=== PATIENT | male | born 1930 | race Caucasian/White ===

== ENCOUNTER 2017-01-30 22:47 | Emergency (ER) | payer OTHER, MEDICARE ==
[~2017-01-30] VITALS: Ht 177.8 cm; Wt 65.8 kg
[~2017-01-30 22:47] MED LIST: AMIODARONE HCL100 M1 PO; AMIODARONE HCL200 M1 PO; ASPIRIN EC81 M1 PO; ATORVASTATIN CA20 M1 PO; CENTRUM SILVER1 EAC3 PO; CIPRO500 M1 PO; COLACE100 M1 PO; DONEPEZIL HCL10 M1 PO; ELIQUIS5 M1 PO; FLUOCINOLONE AC15 G2 TOP; FUROSEMIDE40 M1 PO; LISINOPRIL10 M1 PO; LORAZEPAM2 M1 PO; MOVE FREE JOIN1 EACH PO; NAMENDA10 M2 PO; OCUVITE SOFTGE1 EACH PO; SERTRALINE HCL50 MG PO; SULFAMETHOXAZO1 EAC1 PO
--- NOTE | 2017-01-30 22:50 | ED AMS/SEIZURE/WEAK/DIZZY ---
History of Present Illness General Chief Complaint: General Adult Stated Complaint: " BIBA PER EMS AMS " Source: patient, family, old records, EMS Exam Limitations: dementia, AGITATION Vital Signs & Intake/Output Vital Signs & Intake/Output Vital Signs Date Time Temp Pulse Resp B/P B/P Pulse O2 O2 Flow FiO2 Mean Ox Delivery Rate 02/01 1159 96.7 62 18 120/66 96 Room Air 02/01 0928 98.6 76 18 115/59 98 Room Air Allergies Coded Allergies: NO KNOWN ALLERGIES (05/04/16) Triage Nurses Notes Reviewed? yes Onset: Abrupt Duration: day(s): (2), constant Timing: recent history Injury Environment: home Severity: severe Severity Numbers: 10 No Modifying Factors: none Associated Symptoms: denies HPI: 86 Year old male with history of dementia, CAD s/p [place] and CABG (1986), ischemic cardiomyopathy s/p AICD placement and Afib on Eliquis Presents on police pain for after the patient has walked out of his house twice and has been found laying in the [place] stating to police that "need nail alone or I will hhur you" the patient has be restrained and carried out of the [place] according to the patient's daughter who is the power of claims attorney he had a similar episode a few years ago that did not require hospitalization however they attributed to he's been compliant with all his medications. No recent head trauma no urinary complaints on arrival patient is agitated that he is here he offers no complaints. (DEWEY OLIVER) Reconcile Medications Amiodarone HCl 200 MG TABLET 1 TAB PO Q48 HEART (Reported) Amiodarone HCl 100 MG TABLET 1 TAB PO Q48 HEART (Reported) Apixaban (Eliquis) 5 MG TABLET 1 TAB PO BID BLOOD THINNER (Reported) Aspirin (Ecotrin*) 81 MG TABLET.DR 1 TAB PO DAILY HEART/BLOOD (Reported) Atorvastatin Calcium 20 MG TABLET 0.5 TAB PO DAILY CHOLESTEROL (Reported) Donepezil HCl 10 MG TABLET 1 TAB PO DAILY MEMORY (Reported) Furosemide 40 MG TABLET 1 TAB PO QAM DIURETIC (Reported) Lisinopril 10 MG TABLET 1 TAB PO BID BP (Reported) Lorazepam 2 MG TABLET 5 TAB PO QPM SLEEP (Reported) Memantine HCl (Namenda) 10 MG TABLET 1 TAB PO BID MEMORY (Reported) Sertraline HCl 50 MG TABLET 1 TAB PO DAILY MENTAL HEALTH (Reported) (ASHOK CASTAÑEDA,ALTAGRACIA Casillas) Past History Travel History Traveled to [place] past 21 day No Medical History Any Pertinent Medical History? 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 No (DEWEY OLIVER) Review of Systems Review of Systems Constitutional: Reports: see HPI. All Other Systems: Reviewed and Negative Comments Review of systems: See HPI, All other systems negative. Constitutional, no chills no fever, no malaise HEENT: No visual changes no sore throat no congestion, Cardiovascular: No chest pain , no palpitation , Skin: no rashes, no change in skin Respiratory: No dyspnea no cough no sputum GI: No nausea no vomiting, : No dysuria Muscle skeletal: No joint pain, no joint swelling, no back pain, no neck pain, Neurologic: No numbness confusion, no headache Psych: No stress Heme/endocrine: No bruising Immunology: No lymphadenopathy (DEWEY OLIVER) Physical Exam Physical Exam General Appearance: well developed/nourished, awake Comments: Well-developed well-nourished person in no acute distress HEENT: Normal EENT exam; PERRL, EOMI, no nystagmus. HEAD is atraumatic. moist mucous membranes. Neck: Supple, normal range of motion Back: Nontender, no CVA tenderness. Full range of motion Cardiovascular: Regular rate and rhythms no murmurs rubs Respiratory: No respiratory distress. Patient speaking in full complete sentences. Breath sounds clear to auscultation bilaterally: NO W/R/R Abdomen: Soft, nontender nondistended, no appreciable organomegaly. Extremity: Ecchymosis superficial abrasions to bilateral forearms No edema, full range of motion of extremities, normal and equal pulses bilaterally, 5 out of 5 strength noted to bilateral upper and lower extremities Neuro: Alert oriented x1, motor sensory normal, cranial nerves II through XII grossly intact. There were no obvious focal neurologic abnormalities. Skin: No appreciable rash on exposed skin, skin is warm and dry. Psych: Mood and affect is normal, memory and judgment is normal. Core Measures ACS in differential dx? No CVA/TIA Diagnosis: No Severe Sepsis Present: No Septic Shock Present: No (YOSI PATEL,DEWEY) Progress Differential Diagnosis: alcohol intoxication, anemia, CVA/stroke, electrolyte imbalance, intracranial Hem., intracranial mass/tumor, ELECTROLYTE ABNORAMLITY, DEHYDRATOIN, NORMAL PRESSURE HYDROCEPHALUS, DEMENTIA, UTI, PSYCHOSIS Plan of Care: Orders Procedure Date/time Status Continuous Observation Monitor 02/01 0730 Active CASE MANAGEMENT CONSULT 02/01 0710 Active Continuous Observation Monitor 01/31 1925 Active Continuous Observation Monitor 01/31 1529 Active Continuous Observation Monitor 01/31 1525 Active Labs ordered old records reviewed patient is directable and cooperative at this time case discussed with and signed out to Dr. Culver pending crisis in case management evaluation at 1 AM (YOSI PATEL,DEWEY) 02/01/2017 7:25:55 AM Patient signed out to me by Dr. Hogue. Pending case management evaluation. Pending crisis follow up. 8 AM CASE MANAGEMENT PAGED. 2:51 PM PATIENT TO BE TRANSFERRED TO INPATIENT [facility] BED (DANILO CASTAÑEDA,[facility]) Diagnostic Imaging: Viewed by Me: CT Scan. Discussed w/RAD: CT Scan. Radiology Impression: PATIENT: NOHEMY CNAELA PRESENT AGE: 86 PATIENT ACCOUNT NO: [id number] : [birth year] LOCATION: [facility] ORDERING PHYSICIAN: DEWEY PATEL SERVICE DATE: 01/30/176441 EXAM TYPE: CAT - CT HEAD WO IV CONTRAST EXAMINATION: CT HEAD WITHOUT CONTRAST CLINICAL INFORMATION: Altered mental status COMPARISON: 03/05/2016 TECHNIQUE: Contiguous axial imaging was performed from the skull base to vertex without intravenous administration of contrast. DLP: 606.55 mGy-cm FINDINGS: There is no evidence of acute intracranial hemorrhage or territorial infarction. No abnormal mass effect or midline shift is seen. Zuniga to white matter differentiation is well preserved. No extra-axial fluid collections are identified. The ventricles are normal in size. There is mild to moderate periventricular white matter hypoattenuation consistent with chronic small vessel ischemic disease. The osseous structures and soft tissues are normal. The mastoid air cells and visualized portions of the paranasal sinuses are well aerated. IMPRESSION: No acute intracranial pathology. DICTATED BY: CHACHA VILLATORO MD DATE/TIME DICTATED:01/30/172333 DIAMOND DIE MAKER:ANIRUDH DATE/TIME TRANSCRIBED:01/30/172333 CONFIDENTIAL, DO NOT COPY WITHOUT APPROPRIATE AUTHORIZATION. <Electronically signed in Other Vendor System> SIGNED BY: CHACHA VILLATORO MD 01/30/17 2341 Initial ED EKG: none Hand-Off Endorsed To: JOSEPH CULVER MD Endorsed Time: 010 Pending: consult (CRISIS, CASE MANAGEMENT) (YOSI PATEL,DEWEY) Comments: 01/31/2017 3:34:26 AM patient signed out to me by PA shift change agent. 01/31/2017 8:01:49 AM patient's case has been signed out to Dr. Palacios pending crisis evaluation. Uneventful emergency department stay overnight. (JOSEPH CULVER MD) Hand-Off Endorsed To: ANGELI HOGUE MD Endorsed Time: 190 Pending: consult (BED SEARCH) Comments: Patient has been seen and evaluated by mule operator. Patient is going to require admission for Yaa psych. A bed search is underway. A PEC has been signed. (ASHOK CASTAÑEDA,ALTAGRACIA Casillas) Departure Departure Condition: Stable Clinical Impression Primary Impression: Dementia Referrals: BIRGIT CASTAÑEDA,JUD Olivia (PCP/Family) Departure Forms: Customer Survey General Discharge Information (DEWEY OLIVER) PA/LAY OUT MAKER Co-Sign Statement Statement: ED Attending supervision documentation- [] I saw and evaluated the patient. I have also reviewed all the pertinent lab results and diagnostic results. I agree with the findings and the plan of care as documented in the PA's/LAY OUT MAKER's documentation. [x] I have reviewed the ED Record and agree with the PA's/LAY OUT MAKER's documentation. [] Additions or exceptions (if any) to the PAs/LAY OUT MAKER's note and plan are summarized below: [] (ANGELI HOGUE MD) Departure Disposition: OTHER GENERAL HOSPITAL (ACUTE) (THAO CARRASCO MD) [] (ANGELI HOGUE MD) Departure Disposition: OTHER GENERAL HOSPITAL (ACUTE) (DANILO CASTAÑEDA,THAO) Vendor System> SIGNED BY: CHACHA VILLATORO MD 01/30/17 2341 Initial ED EKG: none Hand-Off Endorsed To: JOSEPH CULVER MD Endorsed Time: 0100 Pending: consult (CRISIS, CASE MANAGEMENT) (DEWEY OLIVER) Comments: 01/31/2017 3:34:26 AM patient signed out to me by PA shift change agent. 01/31/2017 8:01:49 AM patient's case has been signed out to Dr. Palacios pending crisis evaluation. Uneventful emergency department stay overnight. (JOSEPH CULVER MD) Hand-Off Endorsed To: ANGELI HOGUE MD Endorsed Time: 1900 Pending: consult (BED SEARCH) Comments: Patient has been seen and evaluated by mule operator. Patient is going to require admission for Yaa psych. A bed search is underway. A PEC has been signed. (ASHOK CASTAÑEDA,ALTAGRACIA Casillas) Departure Departure Disposition: STILL A PATIENT Condition: Stable Clinical Impression Primary Impression: Dementia Referrals: JUD GENAO MD (PCP/Family) Departure Forms: Customer Survey General Discharge Information (DEWEY OLIVER) PA/LAY OUT MAKER Co-Sign Statement Statement: ED Attending supervision documentation- [] I saw and evaluated the patient. I have also reviewed all the pertinent lab results and diagnostic results. I agree with the findings and the plan of care as documented in the PA's/LAY OUT MAKER's documentation. [x] I have reviewed the ED Record and agree with the PA's/LAY OUT MAKER's documentation. [] Additions or exceptions (if any) to the PAs/LAY OUT MAKER's note and plan are summarized below: [] (EVANS CASTAÑEDA,ANGELI Reese)
--- NOTE | 2017-01-30 23:41 | CT SCAN REPORT ---
EXAMINATION: CT HEAD WITHOUT CONTRAST CLINICAL INFORMATION: Altered mental status COMPARISON: 03/05/2016 TECHNIQUE: Contiguous axial imaging was performed from the skull base to vertex without intravenous administration of contrast. DLP: 606.55 mGy-cm FINDINGS: There is no evidence of acute intracranial hemorrhage or territorial infarction. No abnormal mass effect or midline shift is seen. Zuniga to white matter differentiation is well preserved. No extra-axial fluid collections are identified. The ventricles are normal in size. There is mild to moderate periventricular white matter hypoattenuation consistent with chronic small vessel ischemic disease. The osseous structures and soft tissues are normal. The mastoid air cells and visualized portions of the paranasal sinuses are well aerated. IMPRESSION: No acute intracranial pathology.
[2017-01-30 23:53] LABS: ABSOLUTE BASOPHIL COUNT 0 /CUMM (0.0-0.2); ABSOLUTE EOSINOPHIL COUNT 0 /CUMM (0.0-0.7); ABSOLUTE GRANULOCYTE CT 7.8 /CUMM (1.4-6.5); ABSOLUTE MONOCYTE COUNT 0.7 /CUMM (0.10-0.60); BASOPHIL % 0.1 % (0.0-2.0); EOSINOPHIL % 0.3 % (0-5); GRANULOCYTE % 82.2 % (42.2-75.2); HEMATOCRIT 34.6 % (42-52); MEAN CORPUSCULAR HGB 26.9 PG (27.0-31.0); MEAN CORPUSCULAR HGB CONC 32.9 G/DL (33.0-37.0); MEAN CORPUSCULAR VOLUME 81.7 FL (80.0-94.0); PLATELET COUNT 151 /CUMM (130-400); RBC DISTRIBUTION WIDTH 14.8 % (11.5-14.5); RED BLOOD CELL CT 4.23 /CUMM (4.70-6.10); WHITE BLOOD CELL COUNT 9.5 /CUMM (4.8-10.8)
--- NOTE | 2017-01-31 09:50 | ED PSYCH CRISIS CONSULTATION ---
See Addendum Crisis Consult Basic Assessment Date of Consult: 01/31/17 Responsible Person/Accompanied By: , daughter/Power of Acid Dipper Insurance Authorization: Insurance #1: Insurance name: MEDICARE A Phone number: Policy number: [id number] Group number: Authorization number: ED Provider: Patient's ED Provider: DEWEY OLIVER Primary Care Physician: Patient's PCP: JUD GENAO MD PCP's Current Psychiatrist: n/a Chief Complaint: General Adult Patient's Quote: "I don't know why I was brought here." Present Illness: The pt is an 86yo male BIBA on a PEER after becoming disoriented during his daily walk and found by family and neighbors in the [facility]. During this assessment this typewriters functional tester met with the pt, met with his and reviewed the ED documentation and PEER. The pt was reportedly diagnosed approximately 2 years ago with dementia. The pt walks 5-6 miles almost daily with no incidents until 01/29/17. On 01/29/17 the pt became disoriented during his walk and reportedly tried to take a shortcut. The pt reportedly hit his head due to a fall while in the [facility]. The family called the police who found the pt after he made his way to a road. The pt refused the hospital, knew his name and address, reportedly appeared oriented and was returned home by the police. On 01/30/17 the pt again ended up in the [facility] while walking alone. The pt was again found by family but quickly walked away from them in the [place]. The pt stated he wanted to sleep by the lime in the [facility]. During this time the pt did not recognize his daughter in law. The pt was uncoopertaive with the police and EMS. The pt was restrained in order to be transported by ambulance to the ED. During this assessment the pt presented alert and cooperative. The pt stated he does not know why he is in the hospital. The pt was not sure of the current month stating December or September. The pt stated he knows this hospital well but could not remember the name of the hospital. The pt is requesting discharge home. The pt denies SI, HI, AH or VH. The pts confirmed the pt does not have any history of SI, HI,AH or VH. The pt denies any problems with sleep and appetite. The pt does not have any previous psychiatric hospitalizations. The pts reports excluding the episode yesterday the pt has a pleasant and caring demeanor. The pts stated the 2 incidents of walking in the [place] and being lost are a significant change for the pt. The pt is in consistent treatment with his PCP Dr. Jud Genao. The pts reports the pt last saw his PCP approximately 10 days ago. The pts reports he takes his medications as prescribed. The pt and his have been for 64 years and have 3 adult children who are supportive and live near them. The pt drives only with his in the car to help provide directions. 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 Pts denies a history of dementia in the pts family. Pts presentation discussed with Dr. Jennifer Hanley. Plan is for a [facility]- Psychiatric hospitalization on a PEC due to grave disability. Crisis spoke with the pts Power of Acid Dipper and daughter Lilli Neumann ) who stated she is concerned about what appears to be a sudden change in functioning. Ms. Bazan stated she is in agreement with the plan for a PEC and hospitalization. Patient's Address: [address] [place] [address] Other Phone Number: Who Do You Live With? Spouse Family/Informants Interviewed: , daughter/POA Allergies - Coded Allergies: NO KNOWN ALLERGIES (05/04/16) Current Medications - Scheduled Medications Amiodarone HCl 200 MG TABLET 1 TAB PO Q48 HEART #60 (Reported) Entered as Reported by RAJIV OCHOA on 04/08/16 1650 Amiodarone HCl 100 MG TABLET 1 TAB PO Q48 HEART (Reported) Entered as Reported by RAJIV OCHOA on 04/08/16 1651 Apixaban (Eliquis) 5 MG TABLET 1 TAB PO BID BLOOD THINNER #60 (Reported) Entered as Reported by RAJIV OCHOA on 04/08/16 1649 Aspirin (Ecotrin*) 81 MG TABLET. 1 TAB PO DAILY HEART/BLOOD (Reported) Entered as Reported by RAJIV OCHOA on 04/08/16 1652 Atorvastatin Calcium 20 MG TABLET 0.5 TAB PO DAILY CHOLESTEROL #45 (Reported) Entered as Reported by RAJIV OCHOA on 04/08/16 1651 Donepezil HCl 10 MG TABLET 1 TAB PO DAILY MEMORY #90 (Reported) Entered as Reported by RAJIV OCHOA on 04/08/16 1651 Furosemide 40 MG TABLET 1 TAB PO QAM DIURETIC #90 (Reported) Entered as Reported by RAJIV OCHOA on 04/08/16 1649 Lisinopril 10 MG TABLET 1 TAB PO BID BP #180 (Reported) Entered as Reported by RAJIV OCHOA on 04/08/16 1649 Lorazepam 2 MG TABLET 5 TAB PO QPM SLEEP #30 (Reported) Entered as Reported by RAJIV OCHOA on 04/08/16 1652 Memantine HCl (Namenda) 10 MG TABLET 1 TAB PO BID MEMORY #60 (Reported) Entered as Reported by RAJIV OCHOA on 04/08/16 1654 Sertraline HCl 50 MG TABLET 1 TAB PO DAILY MENTAL HEALTH #30 (Reported) Entered as Reported by RAJIV OCHOA on 04/08/16 1648 Laboratory Results: Laboratory Tests 01/30/17 2354: Urine Opiates Screen < 100.00, Methadone Screen 57, Barbiturate Screen < 60, Ur Phencyclidine Scrn < 6.00, Amphetamines Screen < 100, U Benzodiazepines Scrn 121 , Urine Cocaine Screen < 50, Urine Cannabis Screen < 5.00, Urinalysis LIGHT H, Urine Color YEL, Urine Clarity HAZY H, Urine pH 6.0, Ur Specific [place] 1.015, Urine Protein TRACE H, Urine Ketones NEG, Urine Nitrite NEG, Urine Bilirubin NEG, Urine Urobilinogen 0.2, Ur Leukocyte Esterase NEG, Ur Microscopic SEDIMENT EXAMINED, Urine RBC 1-3, Urine WBC 1-3 H, Ur Epithelial Cells FEW, Urine Bacteria FEW H, Urine Mucus MOD H, Urine Hemoglobin NEG, Urine Glucose NEG 01/30/17 2344: Anion Gap 13, Estimated GFR 57 L, BUN/Creatinine Ratio 24.2, Glucose 129 H, Calcium 9.8, Total Bilirubin 0.7, AST 41, ALT 43, Alkaline Phosphatase 87, Total Protein 7.3, Albumin 4.4, Globulin 2.9, Albumin/Globulin Ratio 1.5, Serum Alcohol < 10.0 01/30/17 2334: CBC w Diff NO MAN DIFF REQ, RBC 4.23 L, MCV 81.7, MCH 26.9 L, RDW 14.8 H, MPV 8.0, Gran % 82.2 H, Lymphocytes % 10.5 L, Monocytes % 6.9, Eosinophils % 0.3, Basophils % 0.1, Absolute Granulocytes 7.8 H, Absolute Lymphocytes 1.0 L, Absolute Monocytes 0.7 H, Absolute Eosinophils 0, Absolute Basophils 0, PUBS MCHC 32.9 L (JOSE GUERIN,BAM SCHRADER) Addendum Addendum Crisis re-eval patient. Patient continues to present calm and cooperative. Patient was able to identify that he is at [facility], was unsure what day it was believed it to be Wednesday, and believed it was December. Patient is aware that we are doing a bed search for a yaa psych bed and patient will remain in the ED until bed is available. He is aware crisis will be in to re-evaluate him in the AM and continue bed search tomorrow. (DOMINICK LUU LCSW) Past History Past Medical History Neurological: dementia EENT: cataracts Cardiovascular: AFIB, CAD (status post multiple angioplas), CHF (s/p multiple angioplasties), hypertension, hyperlipidemia, s/p AICD Respiratory: COPD Gastrointestinal: NONE Hepatic: NONE Renal: NONE Musculoskeletal: NONE Psychiatric: NONE Endocrine: NONE Blood Disorders: NONE Cancer(s): NONE EQUIPMENT OPERATOR/LABORER/Reproductive: NONE Past Surgical History Surgical History: CABG, laminectomy Psychosocial History Strengths/Capabilities: supportive spouse and family, owns a home Physical Limitations (Interventions): n/a Psychiatric Treatment History Psych Treatment Psychiatric Treatment Yes Inpatient Treatment No Outpatient Treatment Yes Location of Treatment PCP Dr. Jud Genao Reason for Treatment Dementia Dates of Treatment dx with dementia 2 years ago Response to Treatment fair Diagnosis by History: Dementia Substance Use/Abuse History Drug Use/Abuse Substances Used/Abused No Substance Abuse Treatment Substance Abuse Treatment Past Substance Abuse [place] No (BAM SILVA) Current Mental Status Mental Status Orientation: Person Affect: Appropriate Speech: WNL Neuro-vegetative: WNL Appearance Appearance- Dress/Hygiene: appropriate Behaviors Thought Process: WNL Thought Content: WNL Memory: Impaired Insight: Poor SI/HI Risk Assessment Past Suicidal Ideation/Attempts No Current Suicidal Ideation/Att No Past Homicidal Ideation/Att: No Current Homicidal Ideation/Attempts No Gravely Disabled: Inability, Lack of Insight, Poor Impulse Control, Poor Judgment Risk Factors: age (under 24/over 65), chronic/serious med cond., high anxiety/ distress, male Lethality Ratin PTSD Checklist PTSD Done? patient declined ED Management Sitter: Yes Restraints: No (BAM SILVA) DSM5/PS Stressors/Medical Prob Diagnosis' (DSM 5, Stressors, Medical): R41.9 Unspecified Neurocognitive Disorder Current GAF: 28 (BAM SILVA) Departure Disposition Psych Medical Clearance Date: 01/31/17 Medically Cleared at: 0750 Time Started: 0750 Time Ended: 0820 Psychiatrist Consulted: Dr. Jennifer Hanley Date Disposition Established: 01/31/17 Time Disposition Established: 939 Plan for Disposition - Modality: Bed Search Facility: Bed Search for [facility] Rationale for Disposition: Pt is gravely disabled Type of IP Admission: PEC Referrals BIRGIT CASTAÑEDA,JUD Olivia (PCP/Family) (BAM SILVA) Addendum Note Addendum Referred to case management for Yaa Psych Bed search. (MANUEL SPARROW,BEATRIZ)
[2017-02-01 11:59] VITALS: BP 120/66
--- NOTE | 2017-02-01 13:40 | ED PSYCHIATRIST/APRN CONSULT ---
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 We reviewed the crisis clinicians note and interviewed the patient. The patient is a tall, slender male looking younger than stated, pleasant and cooperative in the same time very expansive and repeating that he does not know why he was in the emergency room. He recollects that he does not remember things as he used to. Patient is complaining of increased anxiety and stress at home. The patient is oriented to place, he says he has no idea why he was picked up by the spinneret person, had no idea why he was in the emergency room. He does admit that there is a lot of pressure under which he, at times explodes. He's currently denying depression but reports increased anxiety. He says that when anxiety and pressure buildup, he has to do something, and he starts walking. He says that he forgets how long has he been walking but after that, he feels better. The patient apparently was diagnosed with dementia a couple of years prior to this incident, he does not have any treatment for it. In the emergency room he was anxious, it combative, he needed redirection and PRN medication. He needs further evaluation and eventual treatment on the [facility] psych unit. The bed search continues for a geriatric bed. In the meanwhile it seems that case management resumed his cage keys therefore you might get some help.
== END 2017-02-01 15:42 ==
LOC: ERH 22:47
PROVIDERS: Physician Assistant Medical
DX: F03.90 Unspecified dementia, unspecified severity, without behavioral disturbance, psychotic disturbance, mood disturbance, and anxiety (principal); I25.10 Atherosclerotic heart disease of native coronary artery without angina pectoris; I48.91 Unspecified atrial fibrillation; I50.9 Heart failure, unspecified; J44.9 Chronic obstructive pulmonary disease, unspecified; H26.9 Unspecified cataract
CPT/HCPCS: 80307; 81001; 96372; G0463; G0480; J1200; J1630